=== PATIENT | male | born 1940 | race African-American/Black ===

== ENCOUNTER → 2018-02-02 | Day surgery (SDC) | payer OTHER ==
[2017-12-15 14:24] LABS: BASOPHILS % 0.4 % (0.0-1.0); EOSINOPHILS # (AUTO) 0.2 (0.0-0.4); EOSINOPHILS % 2.5 % (0.0-6.0); HEMATOCRIT 33.5 % (38.2-49.6); HEMOGLOBIN 11.1 g/dL (14.0-18.0); LYMPHOCYTES # (AUTO) 2.1 (1.0-3.2); LYMPHOCYTES % 29.9 % (18.0-39.1); MEAN CORPUSCULAR HEMOGLOBIN 31.8 pg (28-32); MEAN CORPUSCULAR HGB CONC 33.1 g/dL (31-35); MONOCYTES # (AUTO) 0.9 (0.2-0.8); MONOCYTES % 13.6 % (4.4-11.3); NEUTROPHILS # (AUTO) 3.6 (2.1-6.9); NEUTROPHILS % 53.2 % (38.7-80.0); PLATELET COUNT 146 x10e3/uL (140-360); RED BLOOD COUNT 3.49 x10e6/uL (4.3-5.7); RED CELL DISTRIBUTION WIDTH 12.1 % (11.7-14.4)
[2017-12-15 14:39] LABS: ANION GAP 15.6 mmol/L (8-16); CALCIUM 10.1 mg/dL (8.4-10.2); CREATININE, SERUM 1.75 mg/dL (0.72-1.25); POTASSIUM 4.6 mmol/L (3.5-5.1)
--- NOTE | 2017-12-15 14:44 | Diagnostic Imaging Report ---
PROCEDURE: Frontal and lateral views of the chest. COMPARISON: Chest radiograph 11/22/13. INDICATIONS: PREOPERATIVE CHEST XRAY FOR PENILE IMPLANT SURGERY FINDINGS: Lines/tubes: None. Lungs: The lungs are well inflated. There is no evidence of pneumonia or pulmonary edema. Apparent nodular opacity overlying right lower lung is likely a nipple shadow and unchanged from radiograph on 11/27/12. Pleura: There is no pleural effusion or pneumothorax. Heart and mediastinum: The cardiomediastinal silhouette is unremarkable. Bones: No acute bony abnormality. IMPRESSION: No acute cardiopulmonary disease. Dictated by: RAVI BARRERA M.D. on 12/15/2017 at 14:49 Electronically approved by: RAVI BARRERA M.D. on 12/15/2017 at 14:49
[2018-01-26 12:06] LABS: BASOPHILS % 0.3 % (0.0-1.0); EOSINOPHILS # (AUTO) 0.2 (0.0-0.4); EOSINOPHILS % 3.9 % (0.0-6.0); HEMATOCRIT 36.5 % (38.2-49.6); LYMPHOCYTES # (AUTO) 1.2 (1.0-3.2); LYMPHOCYTES % 19.9 % (18.0-39.1); MEAN CORPUSCULAR HEMOGLOBIN 31.6 pg (28-32); MEAN CORPUSCULAR HGB CONC 32.9 g/dL (31-35); MEAN CORPUSCULAR VOLUME 96.1 fL (81-99); MONOCYTES # (AUTO) 0.7 (0.2-0.8); MONOCYTES % 12.7 % (4.4-11.3); NEUTROPHILS # (AUTO) 3.7 (2.1-6.9); NEUTROPHILS % 62.9 % (38.7-80.0); PLATELET COUNT 122 x10e3/uL (140-360); RED CELL DISTRIBUTION WIDTH 12.7 % (11.7-14.4)
[2018-01-26 12:23] LABS: ANION GAP 12.7 mmol/L (8-16); CALCIUM 9.5 mg/dL (8.4-10.2); CREATININE, SERUM 1.63 mg/dL (0.72-1.25); POTASSIUM 3.7 mmol/L (3.5-5.1)
[~2018-02-02] MED LIST: ATORVASTATIN CA20 MG PO; BACITRACIN 50,000 UNIT VIAL ONE; BENAZEPRIL-HCT1 EAC3 PO; CARVEDILOL25 MG PO; CARVEDILOL3.125 MG PO; DEXAMETHASONE SOD PHOS INJ 4 MG/ML VIAL ONE; FENTANYL CITRATE/PF 100MCG/2 ML INJ ONE; FISH OIL 1,0001 EAC2 PO; GENTAMICIN 120MG/NS 100ML 100 ML ONE; GLIMEPIRIDE4 MG PO; HYDRALAZINE HCL50 MG PO; ISOSORBIDE MONO30 MG PO; JANUVIA100 MG PO; KETOROLAC TROMETHAMINE 30 MG/ML VIAL ONE; LEVAQUIN500 MG PO; LEVEMIR 3M100 UNITS/ SQ; LIDOCAINE HCL 1% 30ML-PF VIAL ONE; LIDOCAINE HCL 2% LOCAL INJ 5 ML SDV VIAL INJ ONE; LORTAB 10-5001 EACH PO; MELOXICAM15 MG PO; MELOXICAM7.5 MG PO; METAMUCIL PO; METFORMIN HCL500 MG PO; METOCLOPRAMIDE10 MG PO; METOPROLOL SUCC25 MG PO; METOPROLOL SUCC50 MG PO; MIDAZOLAM HCL 2 MG/2 ML VIAL ONE; NORCO 7.5-3251 EACH PO; ONDANSETRON HCL INJ 2 MG/ML VIAL ONE; PIOGLITAZONE30 MG PO; POTASSIUM CHLO20 ME1 PO; PROPOFOL IV EMULSION 10 MG/ML 20 ML VIAL ONE; SEVOFLURANE INHAL SOLN 250 ML PEN BTL ONE; TRESIBA PO; TRIAMCINOLONE A15 G4 TP
[2018-02-02 12:05] VITALS: BP 151/98
--- NOTE | 2018-02-14 11:05 | Operative Report ---
DATE OF PROCEDURE: February 02, 2018 PREOPERATIVE DIAGNOSIS: Organic erectile dysfunction. POSTOPERATIVE DIAGNOSIS: Organic erectile dysfunction. OPERATIVE PROCEDURE PERFORMED: Placement of inflatable penile prosthesis. ANESTHESIA: General anesthesia. ESTIMATED BLOOD LOSS: Minimal. INDICATIONS: Mr. Shahab Denton is a 77-year-old gentleman with a history of hypertension, diabetes mellitus and organic erectile dysfunction which has failed conservative management. He now presents for definitive surgical management of this problem. PROCEDURE IN DETAIL: The patient was brought into the operating room and placed in supine position. After administration of general anesthesia, he was prepped and draped in the usual sterile fashion. A Macias catheter was placed and the balloon inflated. The urine was drained in its entirety and the catheter clamped for the remainder of the procedure. A penoscrotal incision was made sharply, and dissection was carried out through the layers of the penis. The left corporal body was entered first. Minimal bleeding was noted at the time of the corporal incision. The corpora was dilated proximally and distally and measured a total of 23 cm in length. A similar procedure was performed in the right corporal body with similar measurements made. After copious irrigation using antibiotic solution, AMS 700 CX cylinders were placed into both cavernosal bodies 18 cm width and 5 cm RTE. This allowed adequate placing of the tubing. This was placed without incident, and the corporotomy incisions were closed using PDS sutures. Great care was taken to prevent injury to the prosthetic device. A subdartos pocket was created in the scrotum, and this is where the pump was placed. The pocket was then closed using interrupted Vicryl sutures. A separate inguinal incision was made horizontally after local infiltration using 1/4 percent plain Marcaine. Dissection was carried down through the layers of the rectus fascia. A horizontal incision was made over the rectus fascia, and a subrectus pouch was created. Marcaine 0.25% was also injected into this area. The reservoir was placed in this area in the standard fashion and the tubing allowed to exit through a separate stab incision inferior to the wound. The reservoir was ultimately filled with 65 mL of fluid. It was then deflated. The fascial incision was closed using running Vicryl suture. The reservoir was then reinflated with the appropriate amount of fluid. The tubes from the scrotum were brought up into the right groin using the standard knitting needle, and the reservoir and pump were connected via quick connect method. The device was cycled on the table and was noted to have good filling and deflation of the device. The device was left partially inflated to aid with hemostasis. Again, after copious irrigation, the inguinal wound and the penile wound were reapproximated and closed in layers, the skin being closed with a running Monocryl suture. The wound was then cleaned and dried and both were closed with a Mastisol, Steri-Strips and Tegaderm dressing. Anesthesia was reversed, and the patient was transferred to a bed and taken to the postanesthesia care unit in good condition. Of note, the needle and instrument count were correct at the conclusion of the case. Job#: [id number]
== END | disposition home or self-care (01) ==
LOC: OR 06:40
PROVIDERS: ATTEND Urology
DX: N52.8 Other male erectile dysfunction (principal); I10 Essential (primary) hypertension; E11.9 Type 2 diabetes mellitus without complications; F41.9 Anxiety disorder, unspecified; Z88.0 Allergy status to penicillin; Z01.810 Encounter for preprocedural cardiovascular examination; Z01.812 Encounter for preprocedural laboratory examination; Z01.818 Encounter for other preprocedural examination; Z79.84 Long term (current) use of oral hypoglycemic drugs
CPT/HCPCS: 36415 ×3; 54405; 71046; 80048 ×2; 82948; 85025 ×2; 93005; C1813; J1100; J1580; J1885; J2001 ×2; J2250; J2405